=== PATIENT | female | born 2005 | race Caucasian/White ===

== ENCOUNTER 2025-09-12 20:35 | Emergency (ER) | payer BC ==
[~2025-09-12 20:35] MED LIST: Iopamidol-370 76% 500 ML MDV (1 ML CHARGE) ONE
[2025-09-12 23:14] LABS: CAUTI Indications for Culture Pelvic or flank pain; Glucose, Urine (Dipstick) Normal (Negative); Leukocyte 25 Leu/uL (Negative); Protein, Urine (Dipstick) 50 mg/dL (Neg-Trace); RBC/HPF 0-3 HPF (0-3); Specific Gravity, Urine 1.032 (1.002-1.036); WBC/HPF 0-3 HPF (0-3)
[2025-09-12 23:15] LABS: Bacteria/HPF 1+ HPF (None Seen); Pregnancy Test - Urine (BHCG) Negative (Negative); Pregu Control Background? CLEAR/WHITE (CLR/WHITE); Pregu Control Bar Appear? YES (CONTROL BAR)
[2025-09-12 23:16] LABS: Urine Culture Reflex No No
[2025-09-12 23:29] LABS: Hematocrit 33.8 % (36.0-47.0); Hemoglobin 11.4 g/dL (12.0-16.0); Mean Corpuscular Hemoglobin 27.1 pg (25.0-35.0); Mean Corpuscular Volume 80.5 fL (78.0-98.0); Platelet Count 211 10x3/uL (130-400); Red Blood Cell (RBC) Count 4.20 mill/uL (4.00-5.20); White Blood Cell (WBC) Count 16.43 10x3/uL (4.8-10.8)
[2025-09-12 23:42] LABS: ALT (SGPT) 187 U/L (Less than 34); AST (SGOT) 236 U/L (11-34); Albumin 3.8 g/dL (3.1-4.5); Alkaline Phosphatase 335 U/L (40-100); Anion Gap 17 mmol/L (10-20); BUN (Urea Nitrogen) 7 mg/dL (7.0-18.7); Bilirubin, Total 2.7 mg/dL (0.3-1.2); Calc. Creatinine Clearance 0 mL/min (70-130); Calcium 9.8 mg/dL (7.8-10.44); Carbon Dioxide 24 mmol/L (22-29); Chloride 104 mmol/L (98-107); Globulin 4.1 g/dL (2.4-3.5); Glucose 126 mg/dL (70-105); Lipase 37 U/L (8-78); Potassium 3.5 mmol/L (3.5-5.1); Sodium 141 mmol/L (136-145)
[2025-09-13 00:41] LABS: Platelet Adequacy Comment Platelets Normal; RBC Morphology Within Normal Limits; Smudge Cells 13.3 %
[2025-09-13 04:25] LABS: Hep A IgM AB NONREACTIVE (NonReactive); Hep A IgM S/CO 0.26 S/CO (0-0.79); Hep B Core IgM Index 0.10 S/CO (0-0.79); Hep B Surf Ag NONREACTIVE S/CO (NonReactive); Hep C IgG Ab NONREACTIVE S/CO (NonReactive); Hep C Index 0.16 S/CO (0-0.79)
== END 2025-09-13 03:23 | disposition home or self-care (01) ==
LOC: ERS 20:35
DX: R74.01 Elevation of levels of liver transaminase levels (principal); K75.9 Inflammatory liver disease, unspecified; N39.0 Urinary tract infection, site not specified
CPT/HCPCS: 74177; 76705; 76856; 80053; 80074; 81001; 81025; 82550; 83690; 84443; 85025; 93976; 96360; Q9967